=== PATIENT | female | born 1970 | race African-American/Black ===

== ENCOUNTER 2016-06-14 22:53 | Emergency (ER) | payer MEDICARE ==
[2016-06-15 00:54] LABS: BASOPHILS 0.3 % (0.0-2.0); EOSINOPHILS 3.8 % (0-7); HEMATOCRIT 36.1 % (36.0-48.0); HEMOGLOBIN 11.1 g/dL (12-16); IMMATURE GRANULOCYTES 0.1 % (0-5); MCHC 30.7 g/dL (31.0-37.0); MCV 81.3 fL (80.0-100.0); NEUTROPHILS 55.8 % (40-80); PLATELET COUNT 251 10x3/uL (130-400); RBC 4.44 10x6/uL (4.00-5.40); RDW 15.7 % (11.5-14.5); WBC 6.8 10x3/uL (4.8-10.8)
[2016-06-15 01:10] LABS: ALBUMIN 3.8 g/dL (3.4-5.0); ALKALINE PHOSPHATASE 85 U/L (46-116); ALT (SGPT) 34 U/L (10-68); BILIRUBIN - TOTAL 0.23 mg/dL (0.2-1.3); CALC OSMOLALITY 276 mosm/kg (275-300); CALCIUM 9.1 mg/dL (8.5-10.1); CARBON DIOXIDE 26.3 mmol/L (21.0-32.0); CHLORIDE - SERUM 102 mmol/L (98-107); CREATININE - SERUM 0.7 mg/dL (0.6-1.3); GLUCOSE 95 mg/dL (74-106); POTASSIUM - SERUM 3.8 mmol/L (3.5-5.1); PROTEIN - SERUM 7.6 g/dL (6.4-8.2); SODIUM 140 mmol/L (136-145); UREA NITROGEN 8 mg/dL (7-18); eGFR NON AFRICAN AMERICAN > 90 mL/min (90-120)
== END 2016-06-15 07:57 | disposition home or self-care (01) ==
LOC: D.ER 22:53
PROVIDERS: Surgery
DX: R22.43 Localized swelling, mass and lump, lower limb, bilateral (principal); I10 Essential (primary) hypertension

== ENCOUNTER 2016-09-01 09:41 | Emergency (ER) | payer MEDICARE | END 2016-09-01 12:09 | disposition home or self-care (01) | LOC: D.ER 09:41 | DX: M25.561 Pain in right knee (principal); M54.2 Cervicalgia; M54.5 Low back pain; V89.2XXA Person injured in unspecified motor-vehicle accident, traffic, initial encounter ==

== ENCOUNTER 2018-07-11 06:44 | Emergency (ER) | payer MEDICARE, MEDICAID ==
[2018-07-11] MEDS ORDERED: NEURONTIN600 MG PO (06:51)
[2018-07-11] MEDS ORDERED: HYDROCODON-ACE1 EA10 PO (06:52)
[2018-07-11] MEDS ORDERED: GLUCOPHAGE500 MG PO (06:52)
[2018-07-11] MEDS ORDERED: IBUPROFEN800 MG PO (06:52)
[2018-07-11] MEDS ORDERED: TOPROL XL25 MG (06:53)
[2018-07-11] MEDS ORDERED: LIPITOR10 MG PO (06:53)
[2018-07-11] MEDS ORDERED: LIPITOR10 MG (06:54)
[2018-07-11] MEDS ORDERED: KLONOPIN0.5 MG PO (06:54)
[2018-07-11 07:18] LABS: BASOPHILS 0.1 % (0-2); HEMATOCRIT 35.4 % (36.0-48.0); HEMOGLOBIN 11.5 g/dL (12-16); IMMATURE GRANULOCYTES 0.1 % (0-5); LYMPHOCYTES 21.7 % (15-50); MCH 24.9 pg (26.0-34.0); MCHC 32.5 g/dL (31.0-37.0); MCV 76.8 fL (80.0-100.0); MONOCYTES 5.7 % (2-11); NEUTROPHILS 71.4 % (40-80); RBC 4.61 10x6/uL (4.00-5.40); RDW 16.2 % (11.5-14.5); WBC 9.3 10x3/uL (4.8-10.8)
[2018-07-11 07:19] LABS: PLATELET COUNT 326 10x3/uL (130-400)
[2018-07-11 07:31] LABS: ALBUMIN 3.7 g/dL (3.4-5.0); ALKALINE PHOSPHATASE 94 U/L (46-116); ALT (SGPT) 22 U/L (10-68); BILIRUBIN - TOTAL 0.31 mg/dL (0.2-1.3); CALC OSMOLALITY 275 mosm/kg (275-300); CALCIUM 9.2 mg/dL (8.5-10.1); CARBON DIOXIDE 27.4 mmol/L (21.0-32.0); CHLORIDE - SERUM 103 mmol/L (98-107); CREATININE - SERUM 0.7 mg/dL (0.6-1.3); GLUCOSE 99 mg/dL (74-106); POTASSIUM - SERUM 4.1 mmol/L (3.5-5.1); PROTEIN - SERUM 8.5 g/dL (6.4-8.2); SODIUM 139 mmol/L (136-145); UREA NITROGEN 8 mg/dL (7-18); eGFR NON AFRICAN AMERICAN > 90 mL/min (90-120)
== END 2018-07-11 09:46 | disposition home or self-care (01) ==
LOC: D.ER 06:44
PROVIDERS: Family Medicine
DX: S86.911A Strain of unspecified muscle(s) and tendon(s) at lower leg level, right leg, initial encounter (principal); X58.XXXA Exposure to other specified factors, initial encounter; Y93.9 Activity, unspecified; Y92.9 Unspecified place or not applicable

== ENCOUNTER 2019-10-29 11:52 | Emergency (ER) | payer MEDICAID ==
[~2019-10-29] VITALS: Ht 160 cm; Wt 122.7 kg
[~2019-10-29 11:52] MED LIST: GLUCOPHAGE500 MG PO; HYDROCODON-ACE1 EA10 PO; IBUPROFEN800 MG PO; KLONOPIN0.5 MG PO; LIPITOR10 MG; LIPITOR10 MG PO; NEURONTIN600 MG PO; TOPROL XL25 MG
[2019-10-29 12:03] VITALS: Ht 160 cm; Wt 122.7 kg
[2019-10-29] MEDS ORDERED: NAPROSYN500 MG PO (13:21)
[2019-10-29] MEDS ORDERED: ZANAFLEX4 MG PO (13:21)
[2019-10-29 13:43] VITALS: BP 114/62
== END 2019-10-29 13:44 | disposition home or self-care (01) ==
LOC: D.ER 11:52
DX: M62.838 Other muscle spasm (principal); M54.2 Cervicalgia; E11.9 Type 2 diabetes mellitus without complications; Z79.84 Long term (current) use of oral hypoglycemic drugs; J45.909 Unspecified asthma, uncomplicated; M25.512 Pain in left shoulder

== ENCOUNTER 2019-12-15 19:18 | Emergency (ER) | payer MEDICARE, MEDICAID ==
[~2019-12-15] VITALS: Ht 160 cm; Wt 122.7 kg
[~2019-12-15 19:18] MED LIST changes: +NAPROSYN500 MG PO; +ZANAFLEX4 MG PO
[2019-12-15 19:32] VITALS: Ht 160 cm; Wt 122.7 kg
[2019-12-15] MEDS ORDERED: CLINDAMYCIN HC300 MG PO (19:35)
[2019-12-15] MEDS ORDERED: KEFLEX500 MG PO (19:35)
[2019-12-15 20:15] VITALS: BP 145/78
== END 2019-12-15 20:15 | disposition home or self-care (01) ==
LOC: D.ER 19:18
DX: L03.211 Cellulitis of face (principal); E11.9 Type 2 diabetes mellitus without complications; J45.909 Unspecified asthma, uncomplicated; Z79.84 Long term (current) use of oral hypoglycemic drugs

== ENCOUNTER 2020-06-15 22:17 | Emergency (ER) | payer MEDICARE ==
[~2020-06-15 22:17] MED LIST changes: +CLINDAMYCIN HC300 MG PO; +KEFLEX500 MG PO
[2020-06-15 22:40] VITALS: Ht 165.1 cm
[2020-06-16 01:17] LABS: CALC OSMOLALITY 278 mosm/kg (275-300); CALCIUM 9.4 mg/dL (8.5-10.1); CARBON DIOXIDE 26.7 mmol/L (21.0-32.0); CHLORIDE - SERUM 104 mmol/L (98-107); CREATININE - SERUM 0.7 mg/dL (0.6-1.3); GLUCOSE 111 mg/dL (74-106); POTASSIUM - SERUM 3.6 mmol/L (3.5-5.1); SODIUM 139 mmol/L (136-145); UREA NITROGEN 13 mg/dL (7-18); eGFR NON AFRICAN AMERICAN > 90 mL/min (90-120)
[2020-06-16 01:25] LABS: BASOPHILS 0.4 % (0-2); EOSINOPHILS 6.1 % (0-7); HEMATOCRIT 37.3 % (36.0-48.0); IMMATURE GRANULOCYTES 0.1 % (0-5); LYMPHOCYTE ABS# 3.48 10x3/uL (1.18-3.74); LYMPHOCYTES 33.4 % (15-50); MCHC 32.2 g/dL (31.0-37.0); MEAN PLATELET VOLUME 10.2 fL (7.4-10.4); MONOCYTES 6.2 % (2-11); NEUTROPHILS 53.8 % (40-80); PLATELET COUNT 338 10x3/uL (130-400); RBC 4.44 10x6/uL (4.00-5.40); RDW 14.6 % (11.5-14.5); WBC 10.4 10x3/uL (4.8-10.8)
[2020-06-16 01:34] LABS: ALBUMIN 3.6 g/dL (3.4-5.0); ALKALINE PHOSPHATASE 88 U/L (30-120); ALT (SGPT) 24 U/L (10-68); BILIRUBIN - TOTAL 0.12 mg/dL (0.2-1.3); CKMB 0.5 U/L (0.0-3.6); CREATINE KINASE 91 UL (21-215); PROTEIN - SERUM 7.9 g/dL (6.4-8.2)
[2020-06-16 01:37] LABS: TROPONIN-I < 0.017 ng/mL (0.000-0.060)
[2020-06-16] MEDS ORDERED: CYCLOBENZAPRINE10 MG PO (08:36)
[2020-06-16 09:01] VITALS: BP 110/55
== END 2020-06-16 09:00 | disposition home or self-care (01) ==
LOC: D.ER
PROVIDERS: Family Medicine
DX: R06.00 Dyspnea, unspecified (principal); E11.9 Type 2 diabetes mellitus without complications; I10 Essential (primary) hypertension; Z79.84 Long term (current) use of oral hypoglycemic drugs